=== PATIENT | female | born 1980 | race Caucasian/White ===

== ENCOUNTER 2017-07-22 00:05 | Inpatient (IN) | payer BC ==
[~2017-07-22] VITALS: Ht 170.2 cm; Wt 115.0 kg
[2017-07-22] MEDS ORDERED: GLYBURIDE5 MG PO (00:45)
[2017-07-22] MEDS ORDERED: ZOVIRAX400 MG PO (00:49)
[2017-07-22] MEDS ORDERED: PRILOSEC OTC20 MG (00:51)
[2017-07-22] MEDS ORDERED: PRENATA CHEWAB1 EACH PO (00:52)
--- NOTE | 2017-07-22 12:29 | NUR ---
07/22/17 1229 Aditi Cano 1203-PATIENT ARRIVED BACK TO ROOM 104 AT BEDSIDE. PATIENT AWAKE ON RA O2 SAT 98% DENIES PAIN OR NAUSEA. HU PAD IN PLACE SCANT AMT OF SHADOWING ON PAD. FUNDUS AT UMBILICUS FIRM LIGHT RUBRA DRAINAGE. 1224-BP INCREASED TO 135/60 SHAKING HAS DECREASED SINCE 12.5MG DEMEROL IVP GIVEN. 1230-PATIENT . DENIES PAIN OR NAUSEA. FBC RN ASSISTING WITH .
--- NOTE | 2017-07-23 12:20 | OR ---
[facility] [address] [place], [place] [address] Signed DATE OF OPERATION: 07/22/2017 SURGEON: Mello Lubin MD PREOPERATIVE DIAGNOSES: bradycardia, gestational diabetes, term , delivered. POSTOPERATIVE DIAGNOSES: bradycardia, gestational diabetes, term , delivered. PROCEDURE: Emergency low-transverse segment section, delivery of live male infant. SURGEON: Mello Lubin MD TRACTOR OPERATOR: Dr. Gricelda Hawthorne. ANESTHESIA: Epidural. ESTIMATED BLOOD LOSS: 750 mL. COMPLICATIONS: None. DRAINS: Rose to bladder. FINDINGS: Live male , Apgars 8 and 9, weight 7 pounds 14 ounces. There was nuchal cord once tight. Baby was in LOP presentation. Normal uterus. Normal tubes and ovaries bilateral. DESCRIPTION OF PROCEDURE: The patient was brought into the operating room and placed in supine position. After adequate epidural anesthesia was obtained, the patient was prepped and draped in usual sterile fashion. The patient already had a Rose catheter in place. Pfannenstiel skin Electronically Signed By: MELLO LUBIN MD 07/23/17 1220 PATIENT NAME: LETICIA ROBINS OPERATIVE REPORT DATE OF : 80 PHYSICIAN: MELLO LUBIN MD REPORT #: [id number] REPORT IS CONFIDENTIAL AND NOT TO BE RELEASED WITHOUT AUTHORIZATION [address] [place] [address] Signed incision was made with a scalpel and extended through the subcutaneous tissue with the scalpel. The fascia was nicked with the scalpel and extended in a transverse fashion using curved scissors. The underlying abdominal musculature was bluntly and sharply from the fascia above and below the incision. The abdominal musculature was bluntly along the midline. The peritoneum was opened with finger dissection and extended in vertical fashion using Metzenbaum scissors. The Rajan self-retaining retractor was inserted into the incision and tightened in place. The lower uterine segment was identified. A small kassidy was made in the lower uterine segment using a scalpel and the incision was extended in a transverse fashion using finger dissection. Clear fluid came from the incision. The infant was noted to be in vertex LOP presentation. The 's head wedged tightly in the pelvis. Head was elevated up out of the pelvis and into the incision where the head was delivered. Nuchal cord was noted around the neck once and this was removed. The was easily delivered from the incision. The mouth and nose were suctioned with bulb syringe. Nuchal cord was doubly clamped and cut. The was passed off the table in good condition to awaiting nurse. Cord gases were obtained and sent off. The placenta was manually removed and uterine cavity was explored with lap pad to remove any retaining membranes. An angled stitch of #0 Monocryl was placed in one end of the incision and a running locking stitch of #0 Monocryl starting at the other end used to close the incision. A second running stitch of #0 Monocryl was used to imbricate the first layer. Good hemostasis was noted. The entire pelvis was irrigated, suctioned, and examined. Any superficial bleeding spots were cauterized with the Bovie. The Rajan retractor was removed and a sheet of ACell was placed over the lower uterine segment to help with healing. The anterior wall of the peritoneum was then closed using a running stitch of 2-0 Vicryl suture. The abdominal musculature was reapproximated using an interrupted stitch of #0 Vicryl suture. Two small areas of bleeding which were controlled with [id number] stitches of 0 Vicryl suture. The left angle had small amount of bleeding. This was cauterized with the Bovie. The left fascial angle had small amount of bleeding. This was cauterized with Bovie. The abdominal wall incision was irrigated, suctioned, and examined and any superficial bleeding spots were cauterized with Bovie. Powdered ACell was sprinkled on the abdominal musculature and then the fascia was closed using two running stitches of #0 Vicryl suture meeting in the midline. Subcutaneous tissue was irrigated, suctioned, examined, and any bleeding spots were cauterized with Bovie. The remaining powdered ACell was sprinkled on the subcutaneous tissue which was closed with 3-0 Vicryl suture. Skin was reapproximated using skin clips. The patient tolerated the procedure well and went to the recovery room in good condition. Sponge, needle, and instrument counts were correct at the end of procedure. Electronically Signed By: MELLO LUBIN MD 07/23/17 1220 PATIENT NAME: LETICIA ROBINS OPERATIVE REPORT DATE OF : 80 PHYSICIAN: MELLO LUBIN MD REPORT #: [id number] REPORT IS CONFIDENTIAL AND NOT TO BE RELEASED WITHOUT AUTHORIZATION [address] [address] Signed Mello Lubin MD MJB/MODL /[id number] Electronically Signed By: MELLO LUBIN MD 07/23/17 1220 PATIENT NAME: LETICIA ROBINS OPERATIVE REPORT DATE OF : 80 PHYSICIAN: MELLO LUBIN MD REPORT #: [id number] REPORT IS CONFIDENTIAL AND NOT TO BE RELEASED WITHOUT AUTHORIZATION
--- NOTE | 2017-07-24 11:58 | PR ---
[facility] [address] [place] [address] Signed PP Progress Notes Datetime Report Generated by CPN: 07/24/2017 11:58 SUBJECTIVE: [id number] Pain: Within normal limits Nausea/Vomiting: Denies Nausea/Vomiting Comments: slight nausea, no emesis Vital Signs: [id number] Vital Signs: Reviewed; Within Normal Limits Notable Details: PP Hgb/Hct = 11.5/33.4 EXAM: [id number] Abdomen/Uterus: Normal Lochia: Normal Extremities: Normal Incision: Normal IMPRESSION/PLAN/PROCEDURES: [id number] Impression: Normal progression Plan: Discharge Procedures: None Progress Notes: Doing well, ready to go home. Signing Physician: Kandis Cobb MD CC: *Electronically Signed* 07/24/17 1158 KANDIS COBB MD PATIENT NAME: LETICIA ROBINS PROGRESS NOTE DATE OF : 80 PHYSICIAN: KANDIS COBB MD RPT #: [id number] REPORT IS CONFIDENTIAL AND NOT TO BE RELEASED WITHOUT AUTHORIZATION
== END 2017-07-24 16:35 | disposition home or self-care (01) | DRG 766 ==
LOC: FBC 00:05
PROVIDERS: ADMIT General Practice
PROC: 10D00Z1 Extraction of Products of Conception, Low, Open Approach (ICD-10-PCS; principal; 2017-07-22 11:23)
DX: O24.420 Gestational diabetes mellitus in childbirth, diet controlled (principal); O76 Abnormality in fetal heart rate and rhythm complicating labor and delivery; O69.1XX0 Labor and delivery complicated by cord around neck, with compression, not applicable or unspecified; Z3A.39 39 weeks gestation of pregnancy; Z37.0 Single live birth
CPT/HCPCS: 01960; 01961; 36415; 82803; 85027; C1763; J1170; J2175; J2274; J2405; J2590; J3010; J3105; J7030

== ENCOUNTER 2019-11-12 08:43 | Inpatient (IN) | payer BC ==
[~2019-11-12 08:43] MED LIST: GLYBURIDE5 MG PO; PRENATA CHEWAB1 EACH PO; PRILOSEC OTC20 MG; ZOVIRAX400 MG PO
--- NOTE | 2019-11-13 12:01 | NUR ---
11/13/19 1201 Charissa Oakes 1145- PT ARRIVES TO [facility] ROOM #104 ALERT AND ORIENTED. PT REPORTS NO PAIN, NAUSEA, OR DIZZINESS. PT HAS A WHITE SPOT AROUND THE INSERTION OF HER IV. PT REPORTS NO PAIN AT THE SITE AND CONTINUES TO INFUSE PITOCIN WITH LR EASILY. 1154- PT SAT UP SLIGHTLY IN BED. PT CONTINUES TO REPORT NO DIZZINESS, NAUSEA, OR PAIN.
--- NOTE | 2019-11-14 13:00 | PR ---
[facility] [address] [facility] [place] [address] Signed PP Progress Notes Datetime Report Generated by CPN: 11/14/2019 13:00 SUBJECTIVE: [id number] Pain: Within normal limits Nausea/Vomiting: Denies Vital Signs: [id number] Vital Signs: Reviewed; Within Normal Limits Notable Details: PP Hgb/Hct = 11.6/34.8 EXAM: [id number] Abdomen/Uterus: Normal Lochia: Normal Extremities: Normal Incision: Normal IMPRESSION/PLAN/PROCEDURES: [id number] Impression: Normal progression Plan: Continue present management Procedures: None Progress Notes: Doing well, without complaint, voiding without diofficulty, up in chair. Signing Physician: Kandis Cobb MD Copies: ~ *Electronically Signed* 11/14/19 1300 KANDIS COBB MD PATIENT NAME: LETICIA ROBINS PROGRESS NOTE DATE OF : 80 PHYSICIAN: KANDIS COBB MD RPT #: [id number] REPORT IS CONFIDENTIAL AND NOT TO BE RELEASED WITHOUT AUTHORIZATION
--- NOTE | 2019-11-15 11:02 | PR ---
[facility] [address] [facility] [place] [address] Signed PP Progress Notes Datetime Report Generated by CPN: 11/15/2019 11:01 SUBJECTIVE: [id number] Pain: Within normal limits Nausea/Vomiting: Denies Vital Signs: [id number] Vital Signs: Reviewed; Within Normal Limits Notable Details: PP Hgb/Hct = 11.6/34.8 EXAM: [id number] Abdomen/Uterus: Normal Lochia: Normal Extremities: Normal Incision: Normal IMPRESSION/PLAN/PROCEDURES: [id number] Impression: Normal progression Plan: Discharge Procedures: None Progress Notes: Doing well, without complaint, ready to go home Signing Physician: Kandis Cobb MD Copies: ~ *Electronically Signed* 11/15/19 1101 KANDIS COBB MD PATIENT NAME: LETICIA ROBINS PROGRESS NOTE DATE OF : 80 PHYSICIAN: KANDIS COBB MD RPT #: [id number] REPORT IS CONFIDENTIAL AND NOT TO BE RELEASED WITHOUT AUTHORIZATION
--- NOTE | 2019-11-16 08:49 | OR ---
[facility] [address] [place], [place] [address] Signed DATE OF OPERATION: 11/13/2019 SURGEON: Mello Lubin MD Patient of Dr. Lubin PREOPERATIVE DIAGNOSIS: Term , previous section. POSTOPERATIVE DIAGNOSIS: Term , previous section. PROCEDURE: Repeat low transverse segment section, delivery of live male infant. IMMIGRATION COORDINATOR: Dr. Hawthorne. ANESTHESIA: Spinal. ESTIMATED BLOOD LOSS: 500 mL. COMPLICATIONS: None. DRAINS: Rose to bladder. FINDINGS: Live male , Apgars 9 and 9. Weight 7 pounds 7 ounces. Normal uterus. Normal tubes and ovaries bilateral. DESCRIPTION OF PROCEDURE: The patient was brought to the operating room and placed in supine position. After adequate spinal anesthesia was obtained, she was prepped and draped in usual sterile fashion. Rose catheter was placed in the bladder. A Pfannenstiel skin incision was made with a scalpel through previous surgical scar. Subcutaneous tissue was Electronically Signed By: MELLO LUBIN MD 11/16/19 0849 PATIENT NAME: LETICIA ROBINS OPERATIVE REPORT DATE OF : 80 REPORT #: [id number] PHYSICIAN: MELLO LUBIN MD PCP: QUINCY FIORE PAC REPORT IS CONFIDENTIAL AND NOT TO BE RELEASED WITHOUT AUTHORIZATION [address] [address] Signed dissected with Bovie and scalpel. Fascia was nicked with scalpel and extended in transverse fashion using curved scissors. The underlying abdominal musculature was bluntly and sharply from the fascia above and below the incision. The abdominal musculature was bluntly and sharply along the midline. The peritoneum was grasped with hemostats, elevated, nicked with scissors and extended in vertical fashion using scissors. The Rajan self-retaining retractor was inserted into the incision and tightened in place. The lower uterine segment was identified. The bladder flap had thin elevation. This was taken down with Metzenbaum scissors to free up the lower uterine segment. The lower uterine segment was then carefully nicked with scalpel. Clear fluid came from the incision. The incision was extended in a transverse fashion using finger dissection. The was noted to be in vertex MERARY presentation. The 's head was delivered from the incision. The rest of the infant was then easily delivered from the incision, and the cord doubly clamped and cut, and the passed off table in good condition to awaiting nurse. The placenta was then manually removed and the uterine cavity explored with a lap pad to remove any retained membranes. An angle stitch of 0 Monocryl was placed at one end of the incision and a running locking stitch of 0 Monocryl starting at the other end used to close the incision. A 2nd running stitch of 0 Monocryl was used to imbricate the 1st layer. There was small bleeding in the midline and upper edge and so, a simple stitch of 0 Monocryl was used to control this bleeding. The entire pelvis was irrigated, suctioned, examined, and any superficial bleeding spots cauterized with the Bovie. When good hemostasis was obtained, the Rajan was removed and sheet of ACell placed over the lower uterine segment to help with healing. The anterior wall peritoneum was then closed using running stitch of 2-0 Vicryl suture. The abdominal musculature was reapproximated using interrupted stitch of 0 Vicryl suture. The abdominal wall incision was irrigated, suctioned, examined, and any bleeding spots cauterized with the Bovie. Because of the multiple raw areas from previous , Aida was sprinkled on the abdominal musculature, particularly the caudal and cranial apex. No bleeding was noted after the Aida was placed. Powdered ACell was then sprinkled on the abdominal musculature to help with healing. The fascia was then closed using two running stitches of 0 Vicryl suture meeting in the midline. Subcutaneous tissue was irrigated, suctioned, examined, and any bleeding spots cauterized with Bovie. Additional Aida was sprinkled in this to help with any bleeding and then the subcutaneous tissue closed using interrupted stitches of 3-0 Vicryl suture. The skin was reapproximated using skin clips. The patient tolerated the procedure well, went to the recovery room in good condition. The sponge, needle, and instrument count correct at the end of procedure. Mello Lubin MD Electronically Signed By: MELLO LUBIN MD 11/16/19 0849 PATIENT NAME: LETICIA ROBINS OPERATIVE REPORT DATE OF : 80 REPORT #: [id number] PHYSICIAN: MELLO LUBIN MD PCP: QUINCY FIORE PAC REPORT IS CONFIDENTIAL AND NOT TO BE RELEASED WITHOUT AUTHORIZATION [address] [address] Signed [facility] /[id number] Copies: ~ Electronically Signed By: MELLO LUBIN MD 11/16/19 0849 PATIENT NAME: LETICIA ROBINS AMMY OPERATIVE REPORT DATE OF : 80 REPORT #: [id number] PHYSICIAN: MELLO LUBIN MD PCP: QUINCY FIORE REPORT IS CONFIDENTIAL AND NOT TO BE RELEASED WITHOUT AUTHORIZATION
== END 2019-11-15 13:45 | disposition home or self-care (01) | DRG 787 ==
LOC: FBC 11-13 07:59
PROVIDERS: ADMIT General Practice
PROC: 10D00Z1 Extraction of Products of Conception, Low, Open Approach (ICD-10-PCS; principal; 2019-11-13 12:00)
DX: O34.211 Maternal care for low transverse scar from previous cesarean delivery (principal); O98.32 Other infections with a predominantly sexual mode of transmission complicating childbirth; O99.354 Diseases of the nervous system complicating childbirth; N85.8 Other specified noninflammatory disorders of uterus; Z37.0 Single live birth; O24.424 Gestational diabetes mellitus in childbirth, insulin controlled; Z3A.39 39 weeks gestation of pregnancy; Z86.19 Personal history of other infectious and parasitic diseases; A60.00 Herpesviral infection of urogenital system, unspecified; O99.52 Diseases of the respiratory system complicating childbirth; J30.2 Other seasonal allergic rhinitis; G43.909 Migraine, unspecified, not intractable, without status migrainosus; Z79.51 Long term (current) use of inhaled steroids; Z79.899 Other long term (current) drug therapy
CPT/HCPCS: 01961; 36415; 64488; 76942; 85027; A9270; J0690; J1100; J2001; J2405; J2590; J2795

== ENCOUNTER 2021-09-29 07:30 | Day surgery (SDC) | payer BC ==
[~2021-09-29] VITALS: Ht 170.2 cm; Wt 93.0 kg
--- NOTE | 2021-09-29 10:35 | NUR ---
09/29/21 1035 Charissa Oakes 1032- PT ARRIVES TO PACU NONAROUSABLE TO NOXIOUS STIMULI WITH AN OPA IN PLACE. RESP EVEN AND UNLABORED. OXYGEN SAT HIGH 90'S TO 100% ON 6L VIA MASK.
[2021-09-29] MEDS ORDERED: ACETAMINOPHEN500 MG PO (10:54)
[2021-09-29] MEDS ORDERED: IBUPROFEN600 MG PO (10:54)
[2021-09-29] MEDS ORDERED: OXYCODON-ACETA1 EAC2 PO (10:54)
--- NOTE | 2021-09-29 11:31 | NUR ---
RETURNED TO ROOM, SLEEPY. NO FAMILY WAITING. RESTING QIETLY. RAILS UP AND CALL LIGHT WR.
--- NOTE | 2021-09-29 12:20 | NUR ---
PT RESTING, BROUGHT HER LITTLE SHELL TRIBE SODA WITH ICE. PT DENIES PAIN OR NAUSEA.
--- NOTE | 2021-09-29 12:43 | NUR ---
CHANGED DRESSING ON UMBILICAL INCISION USED 2X2 AND TAPE, PT TOLERATED WELL.
--- NOTE | 2021-09-29 12:46 | NUR ---
PT COMPLAINS OF PAIN 5/10 PAIN TO UPPER ABD, PERCOCET GIVEN.
--- NOTE | 2021-09-29 13:12 | NUR ---
1310 PT UP TO BATHROOM WITH MIN ASSIT, SHE WAS ABLE TO VOID 350ML OF CLEAR YELLOW URINE, PT BACK TO BED WARM BLANKETS GIVEN CALL LIGHT WITHIN REACH.
--- NOTE | 2021-09-29 13:22 | NUR ---
PT REPORTS PAIN IS MUCH BETTER AT 3/10.
--- NOTE | 2021-09-29 14:32 | OR ---
[facility] [address] [place], [place] [address] Signed DATE OF OPERATION: 09/29/2021 SURGEON: Perry Lepe MD PREOPERATIVE DIAGNOSES: Chronic subacute acalculous cholecystitis (ejection fraction 21% with reproduction of symptoms on CCK-HIDA test). POSTOPERATIVE DIAGNOSES: 1. Chronic acalculous cholecystitis. 2. Extremely long cystic duct. PROCEDURES: 1. Laparoscopic cholecystectomy with intraoperative cholangiogram. 2. Surgeon-directed fluoroscopy. ANESTHESIA: General endotracheal, Savi Kait, COUTURE ALTERATIONS DRESSMAKER and local 10 mL of 0.25% Marcaine with epinephrine. INDICATION: This 40-year-old woman is a patient of LOLY Cabrera. For over a week, she has been having persistent right subcostal and right subscapular pain progressively disabling in nature. Her symptoms are worsened after eating pretty much anything at this time. Gallbladder ultrasound was performed a few days ago, which showed no sign of stones. Clinical suspicion was extremely high for cholecystitis, subacute and chronic. She has no family history of biliary disease that she knows of. She underwent a CCK-HIDA test yesterday which showed an ejection fraction of 21% with marked reproduction of her symptoms. On the basis of probable chronic acalculous subacute cholecystitis, I have recommended cholecystectomy preferred by a laparoscopic approach. The risk of bleeding, infection, bile duct injury, need for open procedure, and of course failure to cure her problem were reviewed in detail. She understands and wished to proceed. FINDINGS: The gallbladder was chronically inflamed. There were omental adhesions to the undersurface. Liver appeared normal. Cholangiogram showed no sign of filling defect within the biliary tree, but impressively she did have an extremely long cystic duct, no doubt contributing to her gallbladder dysfunction. The gallbladder once excised showed adenomyosis of the mucosa and chronic inflammation, but no sign of stone or neoplasm. She tolerated the procedure well. Electronically Signed By: PERRY LEPE MD 09/29/21 1432 PATIENT NAME: LETICIA ROBINS OPERATIVE REPORT DATE OF : 80 REPORT #: [id number] PHYSICIAN: PERRY LEPE MD PCP: CELINA MCGOWAN PAC REPORT IS CONFIDENTIAL AND NOT TO BE RELEASED WITHOUT AUTHORIZATION [facility] [address] [place], [place] [address] Signed DESCRIPTION OF PROCEDURE: The patient was brought to the operating room, given a general endotracheal anesthetic. Preoperative antibiotic Ancef was given. Sequential compression device stockings were used and heparin subcutaneously administered. The abdomen was prepared with chlorhexidine solution and draped sterilely. An infraumbilical incision was made using an open Kandice cannula technique. The abdomen was entered and pneumoperitoneum was achieved to a level of 14 mmHg of carbon dioxide gas. Intra-abdominal inspection showed no sign of ascites or carcinomatosis. The liver showed mild chronic inflammatory change. Three additional trocars were placed in usual configuration in the subxiphoid, right midclavicular, and right anterior axillary line. The gallbladder was elevated cephalad and was noted to have omental adhesions to the undersurface testifying to her chronic inflammatory condition of the gallbladder. Omental adhesions were taken down with blunt electrocautery dissection allowing for better elevation of the gallbladder. The infundibulum of gallbladder was grasped and dissection was undertaken in the triangle of Calot dissecting free ultimately identifying the cystic duct. The cystic duct was rather narrow. Attempts at choledochotomy initially were unsuccessful. and further dissection of the duct undertaken again showing a very narrow cystic duct. Ultimately, the reasonable choledochotomy was made and after several attempts, cholangiogram was performed. Cholangiogram demonstrated no sign of filling defects. The cystic duct entered the common bile duct on the medial side. Of special note, the length of the cystic duct was quite impressive. No doubt contributing to dysfunction of her gallbladder. The catheter was removed and the cystic duct was triply clipped and divided, the gallbladder was dissected free in a retrograde fashion using electrocautery. The gallbladder was not entered. The gallbladder was placed in an endobag and extracted through the infraumbilical port site without problem, opened on the back table and found to have chronic inflammatory change of the mucosa. Irrigation was undertaken in subhepatic space. Electrocautery was used to assure hemostasis in the gallbladder fossa. Excess irrigation fluid was suctioned free and trocars were removed under direct visualization showing no sign of bleeding. The infraumbilical fascial incision was reapproximated with interrupted 0 Vicryl suture. A 20 mL of 0.25% Marcaine was injected locally. The skin was then closed with interrupted 3-0 Vicryl. Steri-Strips were applied. She was ultimately extubated and transferred to the recovery room in good condition having suffered no complications. Sponge, needle, and instrument counts were reported as correct x3. Perry Lepe MD Electronically Signed By: PERRY LEPE MD 09/29/21 1432 PATIENT NAME: LETICIA ROBINS OPERATIVE REPORT DATE OF : 80 REPORT #: [id number] PHYSICIAN: PERRY LEPE MD PCP: CELINA MCGOWAN REPORT IS CONFIDENTIAL AND NOT TO BE RELEASED WITHOUT AUTHORIZATION [address] [place] [address] Signed /YAMILET /[id number] cc: Celina Mcgowan PA-C Copies: CELINA MCGOWAN ~ Electronically Signed By: PERRY LEPE MD 09/29/21 1432 PATIENT NAME: LETICIA ROBINS OPERATIVE REPORT DATE OF : 80 REPORT #: [id number] PHYSICIAN: PERRY LEPE MD PCP: CELINA MCGOWAN REPORT IS CONFIDENTIAL AND NOT TO BE RELEASED WITHOUT AUTHORIZATION
--- NOTE | 2021-10-02 10:15 | PATH ---
[facility] [address] [place], [place] [address] Signed SPECIMEN(S): A GALLBLADDER SPECIMEN SOURCE: A. GALLBLADDER CLINICAL HISTORY: Cholecystitis. Laparoscopic cholecystectomy with IOC. FINAL PATHOLOGIC DIAGNOSIS: Gallbladder, cholecystectomy: - Chronic cholecystitis. NAL:cml:C2NR MICROSCOPIC EXAMINATION: Histologic sections of all submitted blocks are examined by light microscopy. These findings, together with the gross examination, support the pathologic diagnosis. GROSS DESCRIPTION: The specimen, labeled "BW, A," and designated on the requisition "gallbladder," is received in formalin and consists of Specimen: Previously opened gallbladder. Dimensions: 6.3 x 3.7 x 0.7 cm. Serosa: Yellow-green and smooth. Cystic Duct: Unobstructed, margin inked black and shaved. Calculi: Not grossly identified. Mucosa: Green-brown and velvety. Wall thickness: 0.4 cm. Lymph node: No pericystic lymph nodes are grossly identified. Additional: None. Piece Maker sections are submitted in cassette (A1). AC (under the direct supervision of a pathologist) The Gross Description was prepared using a voice recognition system. The report was reviewed for accuracy; however, sound-alike word errors, addition and/or deletions may occur. If there is any question about this report, please contact Client Services. PERFORMING LABORATORY: The technical component was performed by [employer], [address] [place] [id number] (Prints And Drawings Curator: Marilyn Paez MD; CLIA# [id number]).Professional interpretation was performed by PATIENT NAME: LETICIA ROBINS PATHOLOGY DATE OF : 80 REPORT #: [id number] PHYSICIAN: [facility] PCP: QUINCY FIORE PAC REPORT IS CONFIDENTIAL AND NOT TO BE RELEASED WITHOUT AUTHORIZATION [facility] [address] [place], [place] [address] Signed [employer] [employer], [facility], [address] [place] [id number] (CLIA# [id number]). Diagnostician: Ani Steward MD Pathologist Electronically Signed 10/02/2021 Copies: ~ PATIENT NAME: LETICIA ROBINS PATHOLOGY DATE OF : 80 REPORT #: [id number] PHYSICIAN: [facility] PATHOLOGY PCP: QUINCY FIORE PAC REPORT IS CONFIDENTIAL AND NOT TO BE RELEASED WITHOUT AUTHORIZATION
== END 2021-09-29 13:40 | disposition home or self-care (01) ==
LOC: DS 07:30
PROVIDERS: ATTEND Surgery
PROC: BF12YZZ Fluoroscopy of Gallbladder using Other Contrast (ICD-10-PCS; 2021-09-29)
PROC: 0FT44ZZ Resection of Gallbladder, Percutaneous Endoscopic Approach (ICD-10-PCS; principal; 2021-09-29 08:30)
DX: K81.1 Chronic cholecystitis (principal); Z20.822 Contact with and (suspected) exposure to COVID-19
CPT/HCPCS: 00790; 74300; J0131; J0330; J0690; J1100; J1644; J1790; J1885; J2001; J2250; J2300; J2405; J2704; J7121; Q9967

== ENCOUNTER 2024-02-07 13:27 | Emergency (ER) | payer BC ==
[~2024-02-07] VITALS: Ht 170.2 cm; Wt 95.8 kg
[~2024-02-07 13:27] MED LIST changes: +ACETAMINOPHEN500 MG PO; +IBUPROFEN600 MG PO; +OXYCODON-ACETA1 EAC2 PO; +PROPRANOLOL HCL20 MG PO; +SINGULAIR10 MG PO
[2024-02-07] MEDS ORDERED: PRILOSEC OTC20 MG PO (13:36)
[2024-02-07 13:51] LABS: BASOPHILS 1.1 % (0-2); EOSINOPHILS 1.4 % (0-6); HEMATOCRIT 41.6 % (35.0-50.0); HEMOGLOBIN 14.1 g/dL (12.0-18.0); LYMPHOCYTES 45.7 % (24-44); MCH 32.9 (27-36); MCHC 33.9 g/dl (30-36); MCV 96.9 fl (81-99); MONOCYTES 5.3 % (0-12); NEUTROPHILS 46.5 % (39-80); PLATELET COUNT 238 K/uL (140-440); RBC 4.29 M/ul (4.3-5.7); RDW 13.9 (10.5-15.0)
[2024-02-07 14:11] LABS: ALBUMIN 3.8 g/dL (3.4-5.0); ALKALINE PHOSPHATASE 66 U/L (46-116); ALT (SGPT) 28 U/L (14-59); ANION GAP 15.9 (7-21); AST (SGOT) 25 U/L (15-37); BILIRUBIN, TOTAL 0.4 ng/dL (0.2-1.0); BUN/CREATININE RATIO 12.16 (6.0-28.6); CARBON DIOXIDE 25 mmol/L (21-32); CHLORIDE 100 mmol/L (98-107); CREATININE, SERUM 0.74 mg/dL (0.55-1.02); GLOMERULAR FILTRATION RATE,EST 103 mL/min (>60); MAGNESIUM 1.7 mg/dL (1.8-2.4); POTASSIUM 3.9 mmol/L (3.5-5.1); PROTEIN, TOTAL 7.6 g/dL (6.4-8.2); UREA NITROGEN 9 mg/dL (7-18)
[2024-02-07] MEDS ORDERED: ondansetron HCL 4 MG/2 ML VIAL IV ONE (14:15)
[2024-02-07 14:48] VITALS: BP 133/85
--- NOTE | 2024-02-09 12:51 | EKG ---
[facility] [address] [facility] [place], [place] [address] Signed Normal sinus rhythm with sinus arrhythmia Normal ECG No previous ECGs available Confirmed by TRUDY DEVI MD ([id number]) on 02/09/2024 12:51:25 PM Electronically Signed By: TRUDY DEVI 02/09/24 1251 PATIENT NAME: LETICIA ROBINS Electrocardiogram DATE OF : 80 PHYSICIAN: TRUDY DEVI REPORT #: [id number] REPORT IS CONFIDENTIAL AND NOT TO BE RELEASED WITHOUT AUTHORIZATION
== END 2024-02-07 14:49 | disposition home or self-care (01) ==
LOC: ED 13:27
PROVIDERS: Emergency Medicine
DX: R07.89 Other chest pain (principal); Z87.891 Personal history of nicotine dependence; Z88.5 Allergy status to narcotic agent; Z79.899 Other long term (current) drug therapy
CPT/HCPCS: 36415; 71045; 80053; 83735; 84484; 85025; 85379; 93005; 93010; 96374; 99285-25; J2405

== ENCOUNTER 2024-08-17 05:52 | Day surgery (SDC) | payer BC ==
[2024-06-17 14:26] VITALS: BP 117/73
[2024-08-10 11:10] VITALS: BP 117/73
[~2024-08-17] VITALS: Ht 170.2 cm; Wt 86.4 kg
[~2024-08-17 05:52] MED LIST changes: +LACTATED RINGER'S 1,000 ML IV SCH; +PRILOSEC OTC20 MG PO
[2024-08-17 06:45] VITALS: BP 123/68
[2024-08-17] MEDS ORDERED: ACETAMINOPHEN 1,000 MG/100 ML VIAL ONE (06:45)
[2024-08-17] MEDS ORDERED: dexmedeTOMIDine HCl 200 MCG/2 ML VIAL ONE (06:45)
[2024-08-17] MEDS ORDERED: fentaNYL citrate 100 MCG/2 ML VIAL ONE (06:45)
[2024-08-17] MEDS ORDERED: propofoL 200 MG/20 ML VIAL ONE ×2 (06:45→07:26)
[2024-08-17] MEDS ORDERED: ondansetron HCL 4 MG/2 ML VIAL ONE (06:45)
[2024-08-17] MEDS ORDERED: KETOROLAC TROMETHAMINE 30 MG/ML VIAL ONE (06:45)
[2024-08-17] MEDS ORDERED: DEXAMETHASONE SOD PHOS 4 MG/ML VIAL ONE (06:45)
[2024-08-17] MEDS ORDERED: LIDOCAINE HCL 2% 5 ML SDV ONE (06:45)
[2024-08-17] MEDS ORDERED: MIDAZOLAM HCL 2 MG/2 ML VIAL ONE (06:45)
[2024-08-17] MEDS ORDERED: FAMOTIDINE 20 MG/ 2 ML VIAL IV SCH (07:00)
[2024-08-17] MEDS ORDERED: IBLOOD GLUCOSE TEST STRIP 1 EA TEST VI PRN ×2 (07:00→07:15)
[2024-08-17] MEDS ORDERED: METOCLOPRAMIDE HCL 10 MG/2 ML SDV IV SCH (07:00)
[2024-08-17] MEDS ORDERED: LIDOCAINE HCL 1% 5 ML SDV INJ ONE (07:00)
[2024-08-17] MEDS ORDERED: fentaNYL citrate 50 MCG/ML SDV IV PRN (07:15)
[2024-08-17] MEDS ORDERED: droPERidol 5 MG/2 ML VIAL IV PRN (07:15)
[2024-08-17] MEDS ORDERED: PROCHLORPERAZINE EDISYLATE 10 MG/2 ML VIAL IV PRN ×2 (07:15→08:00)
[2024-08-17] MEDS ORDERED: NALOXONE HCL 0.4 MG SYR IV PRN ×2 (07:15→08:00)
[2024-08-17] MEDS ORDERED: ondansetron HCL 4 MG/2 ML VIAL IV PRN ×2 (07:15→08:00)
[2024-08-17] MEDS ORDERED: HYDROmorphone HCL 1 MG/ML SYR IV PRN (07:15)
--- NOTE | 2024-08-17 07:59 | NUR ---
08/17/24 0759 Sofya Acharya 0748-PT ARRIVES TO PACU RESTING SEMI FOWLERS, PT RESPONSIVE TO TACTILE AND VERBAL STIMULI, BUT FALLS BACK ASLEEP EASILY. VSS ON RA, RR EVEN AND UNLABORED. PT DENIES PAIN OR NAUSEA.
[2024-08-17] MEDS ORDERED: LACTATED RINGER'S 1,000 ML IV SCH (08:00)
[2024-08-17] MEDS ORDERED: IBUPROFEN 800 MG TAB PO PRN (08:00)
[2024-08-17] MEDS ORDERED: MAGNESIUM HYDROXIDE/AL HYDROX 30 ML CUP PO PRN (08:00)
[2024-08-17] MEDS ORDERED: ondansetron HCL 4 MG TAB PO PRN (08:00)
[2024-08-17] MEDS ORDERED: MORPHINE SULFATE 10 MG/ML VIAL IV PRN (08:00)
[2024-08-17] MEDS ORDERED: HYDROCODONE/ACETA 5/325 TAB PO PRN (08:00)
[2024-08-17] MEDS ORDERED: FAMOTIDINE 20 MG TAB PO PRN (08:00)
[2024-08-17] MEDS ORDERED: METOCLOPRAMIDE HCL 10 MG/2 ML SDV IV PRN (08:00)
--- NOTE | 2024-08-17 08:09 | NUR ---
PT GONE FOR PROCEDURE. PROVIDED PRAYER.
[2024-08-17 08:31] VITALS: BP 104/71
--- NOTE | 2024-08-17 18:53 | OR ---
[facility] [address] [place], [place] [address] Signed DATE OF OPERATION: 08/17/2024 SURGEON: Gricelda Hawthorne MD ANESTHESIA: MAC. ESTIMATED BLOOD LOSS: Minimal. DRAINS: None. PREOPERATIVE DIAGNOSIS: Menorrhagia with irregular cycle, intolerance to hormones. POSTOPERATIVE DIAGNOSIS: Menorrhagia with irregular cycle, intolerance to hormones, probable endometrial polyp and submucosal fibroid. INDICATIONS AND FINDINGS: The patient is a 43-year-old female, who has been having heavy irregular bleeding. EMB in the office was not possible. She has a history of severe intolerance to oral contraceptives. She is not currently sexually active, but desires to control her bleeding. At the time of surgery, exam under anesthesia revealed a top-normal sized uterus. The uterus sounded to 9 cm. There was a polyp on the right lower fundus as well as a probable submucosal fibroid. DESCRIPTION OF PROCEDURE: The patient was prepped and draped in the dorsal lithotomy position. A weighted speculum was placed. The anterior lip of the cervix was visualized and grasped with single-tooth tenaculum. The cavity was sounded to 9 cm with some difficulty. The endocervical canal was then dilated without difficulty to a #8 dilator. The MyoSure device was placed and the cavity was evaluated. The upper cavity appeared normal. Both tubal orifices were identified and seen to be normal. There was a polyp on the right lower fundus as well as a probable submucosal fibroid across the posterior fundus. The MyoSure Reach was used and these areas removed. The remainder of the cavity showed some thickening anteriorly and this was also resected. The Mirena device was inserted in the usual manner. After placement, the cavity was re-evaluated with the MyoSure to verify proper IUD positioning. The IUD appeared to be properly Electronically Signed By: GRICELDA HAWTHORNE MD 08/17/24 1853 PATIENT NAME: LETICIA ROBINS OPERATIVE REPORT DATE OF : 80 REPORT #: [id number] PHYSICIAN: GRICELDA HAWTHORNE MD PCP: QUNICY FIORE PAC REPORT IS CONFIDENTIAL AND NOT TO BE RELEASED WITHOUT AUTHORIZATION [facility] [address] [place] [id number] Signed located. The strings were trimmed to 2 cm. The tenaculum was removed. Inspection of the cervix showed that there was some bleeding through the cervix, which did not respond to pressure. A suture of 0-chromic was placed at 3 o'clock and 9 o'clock with good control of bleeding. The instruments were removed. All sponge and needle counts were correct. The patient was taken to the recovery room in good condition. Gricelda Hawthorne MD PJW/MODL /[id number] Copies: ~ Electronically Signed By: GRICELDA HAWTHORNE MD 08/17/24 1853 PATIENT NAME: LETICIA ROBINS OPERATIVE REPORT DATE OF : 80 REPORT #: [id number] PHYSICIAN: GRICELDA HAWTHORNE MD PCP: QUINCY FIORE PAC REPORT IS CONFIDENTIAL AND NOT TO BE RELEASED WITHOUT AUTHORIZATION
--- NOTE | 2024-08-18 10:36 | PATH ---
[facility] [address] [place], [place] [address] Signed SPECIMEN(S): A UTERINE POLYP SPECIMEN SOURCE: A. UTERINE POLYP CLINICAL HISTORY: Menorrhagia with irregular cycle FINAL PATHOLOGIC DIAGNOSIS: Designated "uterine polyp": - Inactive endometrium; no hyperplasia or neoplasia identified BRP MICROSCOPIC EXAMINATION: Histologic sections of all submitted blocks are examined by light microscopy. These findings, together with the gross examination, support the pathologic diagnosis. GROSS DESCRIPTION: The specimen, labeled and designated "Carrington Robins., per requisition uterine polyp with possible fibroid," is received in formalin and consists of a 2.7 x 2.2 x 0.5 cm aggregate of bain-pink tissue fragments. The specimen is entirely submitted in cassette A1. AA (under the direct supervision of a pathologist) The Gross Description was prepared using a voice recognition system. The report was reviewed for accuracy; however, sound-alike word errors, addition and/or deletions may occur. If there is any question about this report, please contact Client Services. ADDITIONAL NOTES: Immunohistochemical and/or in situ hybridization studies if performed in this case included appropriate positive controls that reacted as expected. This test was developed and its performance characteristics determined by [facility]. It has not been cleared or approved by the U.S. Food and Drug Administration. The FDA has determined that such clearance or approval is not necessary. This test is used for clinical purposes. It should not be regarded as investigational or for research. [facility] is certified under the Clinical Laboratory Improvement Amendments of 1988 (CLIA) as qualified to perform high complexity clinical laboratory testing. PATIENT NAME: LETICIA ROBINS PATHOLOGY DATE OF : 80 REPORT #: [id number] PHYSICIAN: CHUCHO PAZ PCP: QUINCY FIORE PAC REPORT IS CONFIDENTIAL AND NOT TO BE RELEASED WITHOUT AUTHORIZATION [address] [place], [place] [address] Signed PERFORMING LABORATORY: Technical component was performed by [facility], [address] [place] [address] (CLIA# [id number]). Professional interpretation was performed by [facility] - [address] [id number] Diagnostician: Kris Dalton MD Pathologist Electronically Signed 08/18/2024 Copies: ~ PATIENT NAME: LETICIA ROBINS PATHOLOGY DATE OF : 80 REPORT #: [id number] PHYSICIAN: CHUCHO PAZ PCP: QUINCY FIORE PAC REPORT IS CONFIDENTIAL AND NOT TO BE RELEASED WITHOUT AUTHORIZATION
== END 2024-08-17 08:40 | disposition home or self-care (01) ==
LOC: OPS 05:52 → DS 05:52 → OPS 07:30
PROVIDERS: ATTEND Obstetrics & Gynecology
PROC: 0UH98HZ Insertion of Contraceptive Device into Uterus, Via Natural or Artificial Opening Endoscopic (ICD-10-PCS; 2024-08-17)
PROC: 0UB98ZZ Excision of Uterus, Via Natural or Artificial Opening Endoscopic (ICD-10-PCS; principal; 2024-08-17 07:30)
DX: N92.1 Excessive and frequent menstruation with irregular cycle (principal); N84.0 Polyp of corpus uteri
CPT/HCPCS: 00952; J0131; J1100; J1885; J2003; J2250; J2405; J2704; J2765; J3010; J7121